=== PATIENT | female | born 1965 | race Caucasian/White ===

== ENCOUNTER → 2023-01-31 | Outpatient (CLI) | payer OTHER ==
[2023-02-01 10:46] LABS: Candida species (DNA Probe) Negative (NEGATIVE); G. vaginalis (DNA Probe) Negative (NEGATIVE); T. vaginalis (DNA Probe) Negative (NEGATIVE)
[2023-02-01 15:09] LABS: HPV 16 Negative (Negative); HPV 18 Negative (Negative); HPV OTHER HR TYPES Negative (Negative)
== END | disposition home or self-care (01) ==
LOC: LAB 13:22 → LAB SHORT 13:22
PROVIDERS: Physician Assistant
DX: Z01.419 Encounter for gynecological examination (general) (routine) without abnormal findings (principal); N89.8 Other specified noninflammatory disorders of vagina
CPT/HCPCS: 87480; 87510; 87624; 87660; G0145

== ENCOUNTER → 2023-02-07 | Outpatient (CLI) | payer OTHER ==
[2023-02-10 00:07] LABS: CHLAMYDIA TRACHOMATIS, NAA Negative (Negative)
== END | disposition home or self-care (01) ==
LOC: LAB SHORT 18:55 → LAB 18:55
PROVIDERS: Physician Assistant
DX: N89.8 Other specified noninflammatory disorders of vagina (principal)
CPT/HCPCS: 87086; 87491; 87591

== ENCOUNTER 2023-08-15 09:14 | Day surgery (SDC) | payer OTHER | END 2023-08-23 22:48 | disposition home or self-care (01) | LOC: MOI MAM 09:14 | DX: D05.12 Intraductal carcinoma in situ of left breast (principal) | CPT/HCPCS: 19081; 88305; 88360; A4648 ==

== ENCOUNTER → 2023-10-03 | Outpatient (CLI) | payer OTHER ==
[2023-10-03 17:35] LABS: Hematocrit 43.7 % (33.0-51.0); Hemoglobin 14.7 g/dL (11.5-16.0); Mean Corpuscular HGB 28.1 pg (26.0-34.0); Mean Corpuscular HGB Conc 33.6 g/dL (31.5-36.5); Mean Corpuscular Volume 83 fL (80-100); Mean Platelet Volume 10.4 fL (9.1-12.4); Platelet Count 297 K/mm3 (150-400); RDW Coefficient Variation 13.2 % (11.7-14.2); RDW Standard Deviation 39.8 fL (35.1-46.3); Red Blood Cell Count 5.24 M/mm3 (3.80-5.20); White Blood Cell Count 9.23 K/mm3 (4.00-11.30)
[2023-10-03 17:49] LABS: Albumin, Blood 4.2 g/dL (3.4-5.0); Albumin/Globulin Ratio 1.1 (0.8-1.8); Bilirubin, Total 0.4 mg/dL (0.1-1.0); Bun/Creatinine Ratio 19.9 (12.0-20.0); Calcium, Blood 9.9 mg/dL (8.5-10.1); Creatinine, Blood 0.81 mg/dL (0.40-1.00); Globulin, Blood 3.8 g/dL (2.2-4.0); Potassium, Blood 3.9 mmol/L (3.5-5.5)
[2023-10-03 18:23] LABS: BAND PERCENT MAN 3 % (0-8); BASOPHILS ABSOLUTE MAN 0.18 K/mm3 (0.00-0.23); BASOPHILS PERCENT MAN 2 % (0-2); EOSINOPHILS ABSOLUTE MAN 0.64 K/mm3 (0.00-0.68); EOSINOPHILS PERCENT MAN 7 % (0-6); LYMPHOCYTES ABSOLUTE MAN 4.98 K/mm3 (0.84-5.20); MONOCYTES ABSOLUTE MAN 0.46 K/mm3 (0.16-1.47); MONOCYTES PERCENT MAN 5 % (4-13); NEUTROPHILS ABSOLUTE MAN 2.95 K/mm3 (1.96-9.15); SEG NEUTROPHILS PERCENT MAN 29 % (41-73); TOTAL CELLS COUNTED 100
[2023-10-03 18:26] LABS: LYMPHOCYTES PERCENT MAN 54 % (21-46)
== END | disposition home or self-care (01) ==
LOC: LAB 17:11 → LAB SHORT 17:11
PROVIDERS: Internal Medicine Hematology & Oncology
DX: C50.919 Malignant neoplasm of unspecified site of unspecified female breast (principal)
CPT/HCPCS: 80053; 82306; 85025

== ENCOUNTER 2024-02-14 17:16 | Emergency (ER) | payer OTHER ==
[~2024-02-14] VITALS: Ht 154.9 cm; Wt 83.5 kg
[~2024-02-14 17:16] MED LIST: Atarax10 MG PO; Bentyl10 MG PO; DICL75ER PO; ESTRADIOL2 MG VAG; ESZO2 PO; EUTHYROX50 MCG PO; MECL12.5 PO; SERT100 PO
[2024-02-14 17:43] LABS: Hematocrit 28.8 % (33.0-51.0); Hemoglobin 9.4 g/dL (11.5-16.0); Mean Corpuscular HGB 31.1 pg (26.0-34.0); Mean Corpuscular HGB Conc 32.6 g/dL (31.5-36.5); Mean Corpuscular Volume 95 fL (80-100); NRBC ABSOLUTE 0.05 K/mm3 (0.00-0.02); NRBC Auto 0.6 /100 WBC (0.0-0.2); Platelet Count 168 K/mm3 (150-400); RDW Coefficient Variation 18.4 % (11.7-14.2); RDW Standard Deviation 64.6 fL (35.1-46.3); Red Blood Cell Count 3.02 M/mm3 (3.80-5.20); White Blood Cell Count 7.74 K/mm3 (4.00-11.30)
[2024-02-14 18:03] LABS: Albumin, Blood 3.6 g/dL (3.4-5.0); Albumin/Globulin Ratio 1.2 (0.8-1.8); Bilirubin, Total 0.5 mg/dL (0.1-1.0); Bun/Creatinine Ratio 20.4 (12.0-20.0); Calcium, Blood 8.9 mg/dL (8.5-10.1); Creatinine, Blood 0.88 mg/dL (0.40-1.00); Potassium, Blood 3.1 mmol/L (3.5-5.5); Total Protein, Blood 6.6 g/dL (6.4-8.2)
[2024-02-14 18:22] LABS: BAND PERCENT MAN 8 % (0-8); BASOPHILS PERCENT MAN 0 % (0-2); EOSINOPHILS PERCENT MAN 0 % (0-6); LYMPHOCYTES PERCENT MAN 44 % (21-46); METAMYELOCYTE ABSOLUTE MAN 0.15 K/mm3 (0.00-0.00); METAMYELOCYTE PERCENT MAN 2 % (0-0); MONOCYTES PERCENT MAN 13 % (4-13); MYELOCYTE ABSOLUTE MAN 0.23 K/mm3 (0.00-0.00); MYELOCYTE PERCENT MAN 3 % (0-0); NEUTROPHILS ABSOLUTE MAN 2.94 K/mm3 (1.96-9.15); SEG NEUTROPHILS PERCENT MAN 30 % (41-73); TOTAL CELLS COUNTED 100
[2024-02-14] MEDS ORDERED: Lactated Ringer's 1,000 ML IV ONE ×2 (19:49→19:50)
[2024-02-14 19:51] VITALS: BP 122/72
== END 2024-02-14 20:51 | disposition home or self-care (01) ==
LOC: ER 17:16
PROVIDERS: Nurse Practitioner
DX: C50.919 Malignant neoplasm of unspecified site of unspecified female breast (principal); E86.0 Dehydration; Z79.899 Other long term (current) drug therapy; Z88.8 Allergy status to other drugs, medicaments and biological substances
CPT/HCPCS: 80053; 85025; 93005; 93010; 96360; 99284-25; J7120

== ENCOUNTER 2024-04-23 09:30 | Inpatient (IN) | payer OTHER ==
[~2024-04-23] VITALS: Ht 154.9 cm; Wt 77.6 kg
[2024-04-24] VITALS (15 sets, daily range): BP systolic 112–133; BP diastolic 63–80
[2024-04-24] MEDS ORDERED: CeFAZolin Sodium 2,000 MG in NS 100 ML IV SCH (10:15)
[2024-04-24] MEDS ORDERED: Lactated Ringer's 1,000 ML IV SCH ×2 (10:15→16:20)
--- NOTE | 2024-04-24 11:00 | NUR ---
Ambulatory in Day Surgery History, Chart, Medications and Allergies reviewed before start of procedure.Lungs clear T/O to Auscultation. Patient confirms NPO status and agrees with scheduled surgery. Patient reports completing Chlorhexadine shower X2 prior to admission to hospital.Surgical site prepped with 2% Chlorhexidine cloth wipe X2.Pt.has her belongings in a bag-id band placed and bag under gurney.
[2024-04-24] MEDS ORDERED: FentaNYL Citrate 50 MCG/ML 2 ML Injection ONE ×2 (11:53→16:45)
--- NOTE | 2024-04-24 12:46 | NUR ---
Pt decided to have her daughter Jennifer take her belongings.
[2024-04-24] MEDS ORDERED: Methylene Blue 1% 100 MG/10 ML VIAL ONE (12:52)
[2024-04-24] MEDS ORDERED: Bupivacaine 0.5% HCl 5 MG/ML 30MLVIAL ONE (12:53)
[2024-04-24] MEDS ORDERED: Rocuronium Bromide 10 MG/ML 5ML Injection IV ONE (13:23)
[2024-04-24] MEDS ORDERED: Dexamethasone Sod Phos 10 MG/ML 1ML VIAL ONE (13:37)
[2024-04-24] MEDS ORDERED: Bupivacaine HCl 0.25% 30 ML Injection ONE ×2 (13:37→15:20)
[2024-04-24] MEDS ORDERED: EpiNEPhrine 1 MG/1 ML 1ML Vial ONE (13:37)
[2024-04-24] MEDS ORDERED: Ondansetron HCl 2 MG / ML 2ML Vial ONE (13:37)
[2024-04-24] MEDS ORDERED: Ketorolac Tromethamine 30mg Vial ONE (13:43)
[2024-04-24] MEDS ORDERED: propofoL 40 ML IV ONE ×2 (13:46→15:05)
[2024-04-24] MEDS ORDERED: ePHEDrine Sulfate 50 MG/ML 1ML Injection ONE (14:04)
[2024-04-24] MEDS ORDERED: propofoL 20 ML IV ONE (14:11)
[2024-04-24] MEDS ORDERED: Sugammadex Sodium 200 MG/2ML SDV (100 MG/ML) ONE (14:34)
--- NOTE | 2024-04-24 16:10 | NUR ---
04/24/24 2118 Belen Luque ANESTHESIOLOGIST GAVE PATIENT BLOCK POSTOPERATIVELY IN OR PRIOR TO EXTUBATION.
[2024-04-24] MEDS ORDERED: Ondansetron HCl 2 MG / ML 2ML Vial IV PRN (16:20)
[2024-04-24] MEDS ORDERED: FentaNYL Citrate 50 MCG/ML 2 ML Injection IV PRN (16:20)
[2024-04-24] MEDS ORDERED: Acetaminophen 325 MG TABLET PO PRN (16:20)
[2024-04-24] MEDS ORDERED: HYDROcodone 5-APAP 325 TAB PO PRN (16:20)
[2024-04-24] MEDS ORDERED: Prochlorperazine Edisylate 10 mg Vial IV PRN (17:50)
[2024-04-24] MEDS ORDERED: Prochlorperazine Edisylate 10 mg Vial ONE (18:01)
--- NOTE | 2024-04-24 19:36 | NUR ---
ARRIVALE/SHIFT SUMMARY PT ARRIVED TO THE FLOOR AT [facility]OUND [facility]8, TRANSFERRED TO BED FROM [facility] WITH SLIDER SHEET, SURGICAL DRESSING INTACT, BOTH MARCELLO DRAINS HAD NO DRAAINAGE AT ARRIVAL UT AT SHIFT CHANGE ONE HAD A SCANT AMOUNT IN THE BULB SANG DRAINAGE, SECOND MARCELLO HAD SMALL AMT IN THE TUBING BUT HAD NOT YET REACHED THE BULB, PT DENIES N/V AFTER BEING MEDICATED WITH COMPAZINE, TOLERATING FLUIDS BUT DOES NOT WANT FOOD YET. NO ACUTE EVENTS, POST OP VITALS GOING WELL, REPORT GIVEN TO CECIL TORRES.
[2024-04-25 05:25] VITALS: BP 104/66
[2024-04-25 07:08] VITALS: BP 87/58
[2024-04-25 08:13] VITALS: BP 98/60
[2024-04-25] MEDS ORDERED: HYDROCODONE-AC1 EA10 PO (08:57)
--- NOTE | 2024-04-25 09:16 | NUR ---
DISCHARGE PT EDUCATED ON AND RECEIVED PRINTED DISCHARGE INSTRUCTIONS AND VERB AN UNDERSTANDING. PT DEMONSTRATED PROPER MARCELLO DRAIN EMPTYING. EXTRA DRESSINGS GIVEN TO PT. HARD RX FOR NORCO GIVEN TO PT. PT GATHERING PERSONAL BELONGINGS. FAMILY AT BEDSIDE TO TAKE PT HOME.
== END 2024-04-25 09:35 | disposition home or self-care (01) | DRG 581 ==
LOC: ORSCSDS 04-24 08:45 → PRE IP 04-24 08:45 → MEDS 04-24 10:21 → ORSCSDS 04-24 11:00 → EDSTATUS 04-24 12:45 → SURS 04-24 16:46
PROVIDERS: ADMIT Surgery
PROC: 07B60ZX Excision of Left Axillary Lymphatic, Open Approach, Diagnostic (ICD-10-PCS; 2024-04-24)
PROC: 0HTU0ZZ Resection of Left Breast, Open Approach (ICD-10-PCS; principal; 2024-04-24 12:30)
DX: C50.812 Malignant neoplasm of overlapping sites of left female breast (principal); Z17.0 Estrogen receptor positive status [ER+]; C50.912 Malignant neoplasm of unspecified site of left female breast; F41.8 Other specified anxiety disorders; E21.3 Hyperparathyroidism, unspecified; Z98.890 Other specified postprocedural states; Z90.89 Acquired absence of other organs; Z98.51 Tubal ligation status; Z79.899 Other long term (current) drug therapy; Z79.890 Hormone replacement therapy; Z88.8 Allergy status to other drugs, medicaments and biological substances
CPT/HCPCS: 38792; 88307; 88329; 88333; 88342; A9270; A9520; J0171; J0690; J0780; J1100; J1885; J2405; J2704; J3010; J7120; Q9968